=== PATIENT | male | born 1985 | race African-American/Black ===

== ENCOUNTER 2020-01-06 13:22 | Emergency (ER) | payer MEDICAID ==
[~2020-01-06] VITALS: Ht 175.3 cm; Wt 81.8 kg
[2020-01-06 15:53] LABS: INFLUENZA TYPE A NEGATIVE FOR TYPE A (NEGATIVE); INFLUENZA TYPE B NEGATIVE FOR TYPE B (NEGATIVE)
[2020-01-06 16:15] VITALS: BP 141/79
== END 2020-01-06 16:26 | disposition home or self-care (01) ==
LOC: EMS 13:23
DX: J40 Bronchitis, not specified as acute or chronic (principal); I10 Essential (primary) hypertension
CPT/HCPCS: 87804